=== PATIENT | female | born 1980 ===

== ENCOUNTER 2017-10-01 10:28 | Outpatient (CLI) ==
[2017-10-01 10:52] VITALS: BP 134/85; TEMP 98.7
[2017-10-01] MEDS ORDERED: BICILLIN L-A IM STA ×2 (11:00→11:10)
[2017-10-01] MEDS: BICILLIN L-A IM STA ×2 (11:07→11:11)
== END 2017-10-01 10:29 | disposition home or self-care (01) ==
LOC: OPMED 10:28
PROVIDERS: ATTEND Nurse Practitioner Family
DX: A53.9 Syphilis, unspecified (principal)
CPT/HCPCS: 96372

== ENCOUNTER 2017-10-01 13:31 | Outpatient (CLI) ==
[2017-10-01 13:49] LABS: BILIRUBIN,URINE Negative (NEGATIVE); KETONES,URINE Negative (NEGATIVE); LEUKOCYTE ESTERASE ,URINE Trace (NEGATIVE); NITRITE,URINE Negative (NEGATIVE); PROTEIN,URINE Negative (NEGATIVE); URINE, BLOOD Negative (NEGATIVE)
[2017-10-01 13:54] LABS: ADD URINE MICROSCOPIC YES; BACTERIA,URINE 2+ (NOT PRESENT)
[2017-10-01 13:57] LABS: ALBUMIN 3.5 g/dL (3.4-5.0); ALBUMIN/GLOBULIN RATIO 0.85; ANION GAP 10.9; BILIRUBIN,TOTAL 0.4 mg/dL (0.00-1.20); BUN/CREATININE RATIO 16.25; CALCIUM 9.3 mg/dL (8.2-10.2); CREATININE 0.8 mg/dL (0.60-1.30); POTASSIUM 3.9 mmol/L (3.5-5.10); TOTAL PROTEIN 7.6 g/dL (6.4-8.2)
== END 2017-10-01 13:32 | disposition home or self-care (01) ==
LOC: LAB 13:31
PROVIDERS: ATTEND Nurse Practitioner Family
DX: A53.9 Syphilis, unspecified (principal); Z20.2 Contact with and (suspected) exposure to infections with a predominantly sexual mode of transmission
CPT/HCPCS: 36415; 80053; 80074; 81001; 86592; 86631; 86695; 86696; 86701; 87086; 87800

== ENCOUNTER 2017-10-08 15:47 | Outpatient (CLI) | END 2017-10-08 15:48 | disposition home or self-care (01) | LOC: LAB 15:47 | PROVIDERS: ATTEND Nurse Practitioner Family | DX: A53.9 Syphilis, unspecified (principal); Z20.2 Contact with and (suspected) exposure to infections with a predominantly sexual mode of transmission | CPT/HCPCS: 36415; 86780 ==

== ENCOUNTER 2017-11-16 16:22 | Outpatient (CLI) | END 2017-11-16 16:23 | disposition home or self-care (01) | LOC: LAB 16:22 | PROVIDERS: ATTEND Family Medicine | DX: Z20.2 Contact with and (suspected) exposure to infections with a predominantly sexual mode of transmission (principal) | CPT/HCPCS: 87800 ==

== ENCOUNTER 2019-12-28 18:44 | Observation (INO) ==
[2019-12-28] MEDS ORDERED: ZOFRAN 4 MG/2 ML IVP STA (19:21)
[2019-12-28] MEDS ORDERED: SODIUM CHLORIDE 1,000 ML IV STA (19:21)
[2019-12-28] MEDS ORDERED: MORPHINE 4 MG/ML SYRINGE IVP STA (19:21)
[2019-12-28] MEDS ORDERED: LACTATED RINGERS 1,000 ML IV STA (19:21)
--- NOTE | 2019-12-28 19:21 | ED.PDOC ---
General ED Provider: Dr. BRANDAN ARELLANO Chief Complaint: Abdominal Pain Stated Complaint: Diffuse abdominal pain for 3 days. Pain has been constant since. States pressure to area helps. Time Seen by Physician: 19:16 Mode of Arrival: Walk-In Information Source: Patient Primary Care Provider: BRENDA LIND Nursing and Triage Documentation Reviewed and Agree: Yes Does patient meet sepsis criteria?: No System Inflammatory Response Syndrome: Not Applicable Sepsis Protocol: For patient's 13 years and over: Temp is 96.8 and below OR 101 and greater Pulse >90 BPM Resp >20/minute Acutely Altered Mental Status Are patient's symptoms suggestive of a new infection, such as: -Pneumonia -Skin, Soft Tissue -Endocarditis -UTI -Bone, Joint Infection -Implantable Device -Acute Abdominal Infection -Wound Infection -Meningitis -Blood Stream Catheter Infection -Unknown GI Complaint Exam Abdominal Pain Complaint/Exam Onset: Gradual Duration: 2 days Symptoms Are: Still present Timing: Constant Initial Severity: Moderate Current Severity: Moderate Location of Pain: Diffuse Radiates To: Denies Chest, Back, Flank, LLQ, RLQ and Inguinal Character: Reports Dull and Aching Aggravating: Reports Food Alleviating: Reports None Associated Signs and Symptoms: Reports Nausea, Vomiting and Diarrhea; Denies Diaphoresis, Fever, Cough, Chest pain, Dizziness, Back pain, Constipation, Blood in stool, Dysuria, Urinary frequency, Decreased urine output, Decreased appetite, Vaginal bleeding, Vaginal discharge, Sore throat and Decreased activity : 2 Para: 2 Hx Total # of Abortions (Spontaneous & Elective): 0 AAA Risk Factors: Reports None Ectopic Risk Factors: Reports None Ovarian Torsion Risk Factors: Reports None Surgical Obstruction Risk Factors: Reports Prior abdominal surgery Related Surgical History: Reports Appendectomy; Denies Cholecystectomy, Gastric Bypass, Kidney Stones, ALLAN and BSO Patient Rh Status: Unknown Abdominal Findings: Absent Rebound tenderness, Peritoneal signs, McBurney's Point tender, CVA Tenderness and Inguinal swelling Female Body Picture: 1. Diffuse abdominal pain without tenderness. Differential Diagnoses: Bowel Obstruction, Diverticulitis and Pancreatitis Review of Systems Review Of Systems Constitutional: Reports Loss of appetite Eyes: Reports No symptoms Ears, Nose, Mouth, Throat: Reports No symptoms Respiratory: Reports No symptoms Cardiac: Reports No symptoms GI: Reports Abdominal pain, Diarrhea (mild), Nausea and Vomiting (3 times today ) : Reports No symptoms Musculoskeletal: Reports No symptoms Skin: Reports No symptoms Neurological: Reports No symptoms Endocrine: Reports No symptoms Hematologic/Lymphatic: Reports No symptoms All Other Systems: Reviewed and Negative [facility] Medical History (Updated 12/28/19 @ 19:35 by BRANDAN ARELLANO MD) Bipolar 1 disorder Syphilis Family History Mother No problems noted. FATHER Cancer Hypertension Other Arthritis Female Reproductive History Menstrual Hx Hysterectomy: No Hx Tubal Ligation: No Physical Exam Physical Exam Appearance: Reports Ill-appearing and Obese Ill-appearing: Mild Pain Distress: Moderate Eyes: Reports DANNIE, EOMI and Conjunctiva clear ENT: Reports Ears normal, Nose normal and Oropharynx normal Respiratory: Reports Airway patent, Breath sounds clear, Breath sounds equal and Respirations nonlabored Cardiovascular: Reports RRR, Pulses normal, No rub and No murmur GI/: Reports Soft and Nontender Musculoskeletal: Reports Normal strength, ROM intact, No edema and No calf tenderness Skin: Reports Warm, Dry and Normal color Neurological: Reports Motor intact, Alert and Oriented Psychiatric: Reports Anxious Critical Care Note Critical Care Note Total Time (mins): 35 Course Course Orders, Labs, Meds: Orders Category Date Time Status ED IV/MEDIPORT/POWERPORT .ONCE EMERGENCY 12/28/19 19:21 Active AMYLASE Stat LAB 12/28/19 19:21 Ordered CBC W/ AUTO DIFF Stat LAB 12/28/19 19:21 Ordered COMPREHENSIVE METABOLIC PANEL Stat LAB 12/28/19 19:21 Ordered LIPASE Stat LAB 12/28/19 19:21 Ordered SERUM Stat LAB 12/28/19 Ordered URINALYSIS C & S IF INDICATED Stat LAB 12/28/19 19:21 Uncollected 0.9 % Sodium Chloride [Saline Flush] MEDS 12/28/19 19:21 Active 1 syr IVF PRN PRN Morphine Sulfate [Morphine 4 mg/ml Syringe] MEDS 12/28/19 19:21 Discontinued 4 mg IVP ONCE STA Ondansetron HCl/Pf [Zofran 4 mg/2 ml] MEDS 12/28/19 19:21 Discontinued 4 mg IVP ONCE STA Ringers Lactated Solution [Lactated Ringers] 1,000 ml MEDS 12/28/19 19:21 Active IV BOLUS Sodium Chloride 0.9% [Sodium Chloride] 1,000 ml MEDS 12/28/19 19:[address] ABD/PEL WO RENAL STONE PROT Stat RADS 12/28/19 19:21 Ordered Medications Generic Name Dose Route Start Last Admin Trade Name Freq PRN Reason Stop Dose Admin Lactated Ringer's 1,000 mls @ 1,000 mls/hr 12/28/19 19:21 Lactated Ringers IV 12/28/19 20:20 BOLUS STA Sodium Chloride 1,000 mls @ 1,000 mls/hr 12/28/19 19:21 Sodium Chloride IV 12/28/19 20:20 BOLUS STA Sodium Chloride 1 syr 12/28/19 19:21 Saline Flush IVF PRN PRN To flush IV Discontinued Medications Generic Name Dose Route Start Last Admin Trade Name Freq PRN Reason Stop Dose Admin Morphine Sulfate 4 mg 12/28/19 19:21 Morphine 4 Mg/Ml Syringe IVP 12/28/19 19:22 ONCE STA Ondansetron HCl 4 mg 12/28/19 19:21 Zofran 4 Mg/2 Ml IVP 12/28/19 19:22 ONCE STA Vital Signs: Temp Pulse Resp BP Pulse Ox 12/28/19 18:44 98.6 F 113 H 17 130/84 95 Discharge Plan Discharge Patient Disposition: HOME SELF-CARE Discharge Problem: Abdominal pain Instructions: Abdominal Pain (ED) Prescriptions: No Action cetirizine 10 MG tablet 10 mg PO DAILY 30 Days Qty: 30 RF: 0 No Reported Medications 0 Qty: 0 RF: 0 ED Provider: BRANDAN ARELLANO
[2019-12-28 19:46] LABS: HEMATOCRIT 41.3 % (37.0-47.0)
--- NOTE | 2019-12-28 20:42 | CT ---
EXAM: CT of the abdomen pelvis without contrast History: Diffuse abdominal pain with nausea and vomiting. Technique: Multiplanar CT images through the abdomen pelvis were obtained without the administration of IV contrast Findings: Lung bases are clear. No acute osseous abnormalities. No gallstones identified by CT. Possible gallbladder sludge. Adrenal glands are unremarkable. No r enal stones and no hydronephrosis. The appendix is not seen. There is acute inflammation involving the pancreatic tail. No peripancreatic fluid collections. Evaluation for a pancreatic mass is limit ed due to lack of contrast administration. No liver or splenic lesions. No bowel obstruction. No f ree air. No bladder wall thickening. No perirectal inflammation. Adnexal structures appear appropr iate for patient's age. No abdominal aortic aneurysm. Impression: 1. Acute pancreatitis. 2. Possible gallbladder sludge
[2019-12-28] MEDS ORDERED: DILAUDID 1 MG/ML SYRINGE IVP STA (21:42)
[2019-12-28] MEDS ORDERED: DILAUDID 1 MG/ML SYRINGE IVP PRN ×2 (22:43→23:30)
[2019-12-28] MEDS ORDERED: NORCO 5-325 PO PRN (22:43)
[2019-12-28] MEDS ORDERED: ZOFRAN 4 MG/2 ML IVP PRN (22:43)
[2019-12-28] MEDS ORDERED: MORPHINE 2 MG/ML SYRINGE IVP PRN (22:59)
[2019-12-28] MEDS ORDERED: SODIUM CHLORIDE 0.9%-KCL 20 MEQ 1,000 ML IV SCH (23:00)
[2019-12-28] MEDS ORDERED: TRANDATE IVP PRN (23:02)
[2019-12-28 23:46] VITALS: BMI 45.5
[2019-12-29] MEDS: TYLENOL PO PRN ×2 (02:23→07:53)
[2019-12-29 05:31] LABS: HEMATOCRIT 35.7 % (37.0-47.0)
[2019-12-29] MEDS: SODIUM CHLORIDE 1,000 ML IV SCH ×2 (07:55→09:46)
[2019-12-29] MEDS ORDERED: LOVENOX SUBCUT SCH (09:00)
--- NOTE | 2019-12-29 09:01 | PCM ---
Chief Complaint Chief Complaint: "pain all across my stomach for the past 3 days" History of Present Illness History of Present Illness: Ms Rebolledo is a 39 year old female with past medical history of bipolar disorder and PTSD diagnosed about 3 years ago n ot currently on any mediations, who presents to the emergency department last evening 12/28/19 with c/o abdominal pain starting 3 days ago. Pt started on IV fluids, given dilaudid for pain control and zofran for nausea in ED. CT abd wo in ED showed acute pancreatitis. Pt is admitted to hospitalist service, observation status, for further evaluation and care. Pt is interviewed and examined at the bedside in her room on the medical unit. Pt is walking and pushing her IV pole from bathroom as I enter the room. She has a steady gait and doesn't complain of dizziness currently. She tells me that the "uncomfortable feeling in her stomach" started about 3 days ago. It then began to hurt and she was dizzy, had nausea, had one loose stool, and had chills. She states she had only one loose stool. She had another stool since then that was "normal". She took tylenol after she had the chills. She checked her temperature about 30 minutes after the tylenol and it was "98. something" she can't remember but she thought it was high so she decided to come to the hospital. Since her admission overnight pt has complained of a headache and received tylenol at 0230hrs 12/28. She didn't ask for any other pain medication overnight and said she slept "ok". She is now complaining of nausea and vomits x 1 this morning around 0815hrs and also of having a headache. She is NPO p MN for ultrasound this morning. Pt tells me that she has a history of bipolar disorder and PTSD diagnosed about 3 years ago by psychiatry. She was receiving counseling with a therapist and she was prescribed medication but didn't like how she felt on the medication and also was concerned about the reported side effects so she stopped taking it. She did return to speak with the psychiatrist about the mediation and they wanted to "up the dose" so she decided not to go back. She said she took the medication for a few weeks. She said she was told that the medication would "help keep me from gaining weight" but she decided she didn't like the medication and so stopped it. Pt states she has gained about 100 pounds over the past 3 years. Pt states she was donating plasma while living in [place] and was told she might have syphillis. She was seen in a clinic and had a blood test and was told it was negative. She was never treated. She has since left the area and now lives in [place] with her children and her mother. Review of Systems Constitutional: Reports chills; Denies fever, weakness, sweats, fatigue, loss of appetite and other Eyes: Denies blurred vision, double-vision, discharge, itching, pain, redness, photophobia and other Nose: Denies bleeding, congestion, discharge and other Throat: Denies pain, swelling, voice change and other Mouth: Denies bleeding, pain, swelling and other Respiratory: Denies cough, shortness of air, wheeze, hemoptysis, pain with breathing and other Cardiovascular: Denies chest pain, left arm pain, diaphoresis, PND, orthopnea, edema, palpitations, syncope and other Gastrointestinal: Reports abdominal pain, nausea and vomiting; Denies diarrhea, melena, hematemesis, hematochezia, dysphagia, constipation and other Genitourinary: Reports frequency; Denies dysuria, hematuria, incontinence, flank pain, vaginal discharge, abnormal bleeding, pelvic pain and other Neurological: Reports headache and dizziness; Denies seizure, numbness, weakness, speech difficulty, problems with walking, tremor, fainting and other Musculoskeletal: Denies pain, swelling in joints and other Skin: Denies rash, pruritus, lacerations, wounds, bruising and other Immunology: Denies hives, itching, frequent infections, difficulty healing and other Hematology: Denies easy bruising, easy bleeding, swollen glands and other Endocrine: Reports weight changes; Denies cold intolerance, heat intolerance, excessive thirst, excessive hunger, polyuria and other Psychiatric: Reports depression and other (hx bipolar disorder and PTSD) Habits: Denies tobacco use, substance use, alcohol use and other Allergies Allergies Allergy/AdvReac Type Severity Reaction Status Date / Time povidone-iodine Allergy Intermediate Rash Verified 12/28/19 21:50 [From Betadine] soap [From Betadine] Allergy Intermediate Rash Verified 12/28/19 21:50 [facility] Medical History Bipolar 1 disorder PTSD (post-traumatic stress disorder) (Acute) Surgical History Status post appendectomy Family History (Updated 12/29/19 @ 08:37 by [employer] DERMATOLOGY NURSE) FATHER Cancer Hypertension Mother No problems noted. Other Arthritis Social History (Updated 12/29/19 @ 08:40 by [employer] DERMATOLOGY NURSE) Smoking and tobacco status: Never smoker Alcohol intake: never Lives independently: Yes Number of children: 2 Current occupational status: unemployed History of recent travel: No Medications Medications: Medications Generic Name Dose Route Start Last Admin Trade Name Freq PRN Reason Stop Dose Admin Acetaminophen 650 mg 12/28/19 23:00 12/29/19 07:53 Tylenol PO 650 mg Q6H PRN Administration Mild Pain Hydrocodone Bitart/Acetaminophen 1 tab 12/28/19 22:43 [place] 5-325 PO Q6H PRN Abdominal Pain moderate Enoxaparin Sodium 40 mg 12/29/19 09:00 Lovenox SUBCUT DAILY CARI Sodium Chloride 1,000 mls @ 100 mls/hr 12/28/19 23:00 12/29/19 07:55 Sodium Chloride IV 100 mls/hr .Q10H CARI Administration Labetalol HCl 10 mg 12/28/19 23:02 Trandate IVP Q6H PRN Hypertensive Emergency Morphine Sulfate 2 mg 12/28/19 22:59 Morphine 2 Mg/Ml Syringe IVP Q4H PRN Severe Pain Protocol Ondansetron HCl 4 mg 12/28/19 22:43 12/29/19 07:53 Zofran 4 Mg/2 Ml IVP 4 mg Q6H PRN Administration Nausea / Vomiting Sodium Chloride 1 syr 12/28/19 19:21 12/28/19 20:11 Saline Flush IVF 1 syr PRN PRN Administration To flush IV Body Composition Height: 5 ft 6 in Weight: 281 lb 15.539 oz Body Mass Index (BMI): 45.5 Vital Signs Temperature: 97.9 F Pulse Rate: 85 Respiratory Rate: 16 Blood Pressure: 107/67 O2 Sat by Pulse Oximetry: 95 Physical Examination Appearance: Reports Well-appearing and Obese Pain Distress: Mild Eyes: Reports DANNIE and EOMI ENT: Reports Oropharynx normal Neck: Supple Respiratory: Reports Airway patent, Breath sounds clear, Breath sounds equal and Respirations nonlabored Cardiovascular: Reports RRR and Pulses normal GI/: Reports Soft, Nontender (diffuse mild tenderness to palpation), Bowel sounds normal and No Organomegaly (difficult to assess to due to girth) Musculoskeletal: Reports ROM intact and No edema Skin: Reports Warm and Dry Neurological: Reports Sensation intact, Motor intact, Alert and Oriented Psychiatric: Reports Affect appropriate (rather flat affect; doesn't appear to be anxious) Lab/Tests/Diagnostic Imaging Lab/Tests/Diagnostic Imaging: CT Abdomen wo 12/28/19 Findings: Lung bases are clear. No acute osseous abnormalities. No gallstones identified by CT. Possible gallbladder sludge. Adrenal glands are unremarkable. No renal stones and no hydronephrosis. The appendix is not seen. There is acute inflammation involving the pancreatic tail. No peripancreatic fluid collections. Evaluation for a pancreatic mass is limited due to lack of contrast administration. No liver or splenic lesions. No bowel obstruction. No free air. No bladder wall thickening. No perirectal inflammation. Adnexal structures appear appropriate for patient's age. No abdominal aortic aneurysm. Impression: 1. Acute pancreatitis. 2. Possible gallbladder sludge Lab Review 12/28/19 12/28/19 12/28/19 19:40 19:40 19:40 WBC 9.63 RBC 4.99 Hgb 13.4 Hct 41.3 MCV 82.8 MCH 26.9 L MCHC 32.4 RDW Coeff of [place] 13.9 Plt Count 277 Immature Gran % (Auto) 0.2 Neut % (Auto) 79.5 H Lymph % (Auto) 14.0 Forrest % (Auto) 5.0 Eos % (Auto) 1.1 Baso % (Auto) 0.2 Immature Gran # (Auto) 0.0 Neut # (Auto) 7.7 H Lymph # (Auto) 1.4 Forrest # (Auto) 0.5 Eos # (Auto) 0.1 Baso # (Auto) 0.0 Sodium 136.1 Potassium 3.81 Chloride 100.0 Carbon Dioxide 26.9 Anion Gap 13.01 BUN 9.7 Creatinine 0.58 L Estimated GFR (MDRD) 116.00 BUN/Creatinine Ratio 16.72 Glucose 93.3 Hemoglobin A1c Calcium 8.56 Total Bilirubin 0.55 AST 26.3 ALT 15.8 Alkaline Phosphatase 101.2 Total Protein 7.55 Albumin 4.11 Globulin 3.44 Albumin/Globulin Ratio 1.19 Triglycerides Cholesterol LDL Cholesterol, Calc VLDL Cholesterol HDL Cholesterol Cholesterol/HDL Ratio Amylase 78.3 Lipase 164.2 Serum , Qual Negative Urine Color Urine Clarity Urine pH Ur Specific [place] Urine Protein Urine Glucose (UA) Urine Ketones Urine Blood Urine Nitrite Urine Bilirubin Urine Urobilinogen Ur Leukocyte Esterase Urine Microscopic WBC Ur Squamous Epith Cells Ur Transition Epith Cell Urine Bacteria Urine Mucus 12/28/19 12/29/19 12/29/19 21:00 05:04 05:04 WBC 7.95 RBC 4.38 Hgb 11.6 L Hct 35.7 L MCV 81.5 MCH 26.5 L MCHC 32.5 RDW Coeff of [place] 14.0 Plt Count 254 Immature Gran % (Auto) 0.3 Neut % (Auto) 73.9 Lymph % (Auto) 17.6 Forrest % (Auto) 6.5 Eos % (Auto) 1.4 Baso % (Auto) 0.3 Immature Gran # (Auto) 0.0 Neut # (Auto) 5.9 Lymph # (Auto) 1.4 Forrest # (Auto) 0.5 Eos # (Auto) 0.1 Baso # (Auto) 0.0 Sodium 136.4 Potassium 3.99 Chloride 102.9 Carbon Dioxide 26.2 Anion Gap 11.29 BUN 7.7 Creatinine 0.61 Estimated GFR (MDRD) 110.00 BUN/Creatinine Ratio 12.62 Glucose 103.9 Hemoglobin A1c Calcium 8.52 Total Bilirubin AST ALT Alkaline Phosphatase Total Protein Albumin Globulin Albumin/Globulin Ratio Triglycerides 79.7 Cholesterol 142.0 LDL Cholesterol, Calc 85 VLDL Cholesterol 16 HDL Cholesterol 41.0 Cholesterol/HDL Ratio 3.5 L Amylase 68.6 Lipase 152.2 Serum , Qual Urine Color Yellow Urine Clarity Slightly Urine pH 6.0 Ur Specific [place] 1.025 Urine Protein Negative Urine Glucose (UA) Negative Urine Ketones Trace H Urine Blood Negative Urine Nitrite Negative Urine Bilirubin Negative Urine Urobilinogen 1.0 H Ur Leukocyte Esterase 1+ H Urine Microscopic WBC 50-100 Ur Squamous Epith Cells 10-20 Ur Transition Epith Cell 2-5 Urine Bacteria 3+ Urine Mucus 1+ 12/29/19 05:04 WBC RBC Hgb Hct MCV MCH MCHC RDW Coeff of [place] Plt Count Immature Gran % (Auto) Neut % (Auto) Lymph % (Auto) Forrest % (Auto) Eos % (Auto) Baso % (Auto) Immature Gran # (Auto) Neut # (Auto) Lymph # (Auto) Forrest # (Auto) Eos # (Auto) Baso # (Auto) Sodium Potassium Chloride Carbon Dioxide Anion Gap BUN Creatinine Estimated GFR (MDRD) BUN/Creatinine Ratio Glucose Hemoglobin A1c 5.38 Calcium Total Bilirubin AST ALT Alkaline Phosphatase Total Protein Albumin Globulin Albumin/Globulin Ratio Triglycerides Cholesterol LDL Cholesterol, Calc VLDL Cholesterol HDL Cholesterol Cholesterol/HDL Ratio Amylase Lipase Serum , Qual Urine Color Urine Clarity Urine pH Ur Specific [place] Urine Protein Urine Glucose (UA) Urine Ketones Urine Blood Urine Nitrite Urine Bilirubin Urine Urobilinogen Ur Leukocyte Esterase Urine Microscopic WBC Ur Squamous Epith Cells Ur Transition Epith Cell Urine Bacteria Urine Mucus Orders Category Date Time Status ADMIT OBSERVATION [PLACE PATIENT OBSERVATION] .TO ADMISSION 12/28/19 23:11 Active MEDSURG (NON-MONITORED BED) ACTIVITY .Up ad Kaylee CARE 12/28/19 22:46 Active INTAKE & OUTPUT Q8HR CARE 12/28/19 22:45 Active NPO REMINDER: IMAGING ONCE CARE 12/28/19 22:48 Completed NPO REMINDER: LAB TEST ONCE CARE 12/29/19 00:08 Active VITAL SIGNS Q4HR CARE 12/28/19 22:45 Active NPO [NOTHING BY MOUTH] DIETARY 12/29/19 Breakfast Ordered REGULAR DIET DIETARY 12/28/19 Lunch Ordered ED IV/MEDIPORT/POWERPORT .ONCE EMERGENCY 12/28/19 19:21 Active AMYLASE Routine LAB 12/29/19 05:04 Completed AMYLASE Stat LAB 12/28/19 19:40 Completed BASIC METABOLIC PANEL DAILY@0600 LAB 12/29/19 05:04 Completed CBC W/ AUTO DIFF DAILY@0600 LAB 12/29/19 05:04 Completed CBC W/ AUTO DIFF Stat LAB 12/28/19 19:40 Completed COMPREHENSIVE METABOLIC PANEL Stat LAB 12/28/19 19:40 Completed HEMOGLOBIN A1C Routine LAB 12/29/19 05:04 Completed LIPASE Routine LAB 12/29/19 05:04 Completed LIPASE Stat LAB 12/28/19 19:40 Completed LIPID PANEL Routine LAB 12/29/19 05:04 Completed SERUM Stat LAB 12/28/19 19:40 Completed URINALYSIS C & S IF INDICATED Stat LAB 12/28/19 21:00 Completed URINE CULTURE Stat LAB 12/28/19 21:00 Results 0.9 % Sodium Chloride [Saline Flush] MEDS 12/28/19 19:21 Active 1 syr IVF PRN PRN Acetaminophen [Tylenol] MEDS 12/28/19 23:00 Active 650 mg PO Q6H PRN Enoxaparin Sodium [Lovenox] MEDS 12/29/19 09:00 Active 40 mg SUBCUT DAILY Hydrocodone Bit/Acetaminophen [[place] 5-325] MEDS 12/28/19 22:43 Active 1 tab PO Q6H PRN Hydromorphone HCl [Dilaudid 1 mg/ml Syringe] MEDS 12/28/19 21:42 Discontinued 1 mg IVP ONCE STA Hydromorphone HCl [Dilaudid 1 mg/ml Syringe] MEDS 12/28/19 22:43 Discontinued 1 mg IVP Q4HR PRN Labetalol HCl [Trandate] MEDS 12/28/19 23:02 Active 10 mg IVP Q6H PRN Morphine Sulfate [Morphine 2 mg/ml Syringe] MEDS 12/28/19 22:59 Active 2 mg IVP Q4H PRN Morphine Sulfate [Morphine 4 mg/ml Syringe] MEDS 12/28/19 19:21 Discontinued 4 mg IVP ONCE STA Ondansetron HCl/Pf [Zofran 4 mg/2 ml] MEDS 12/28/19 19:21 Discontinued 4 mg IVP ONCE STA Ondansetron HCl/Pf [Zofran 4 mg/2 ml] MEDS 12/28/19 22:43 Active 4 mg IVP Q6H PRN Ringers Lactated Solution [Lactated Ringers] 1,000 ml MEDS 12/28/19 19:21 Discontinued IV BOLUS Sodium Chloride 0.9% [Sodium Chloride] 1,000 ml MEDS 12/28/19 23:00 Active IV 100 mls/hr Sodium Chloride 0.9% [Sodium Chloride] 1,000 ml MEDS 12/28/19 19:21 Discontinued IV BOLUS RESUSCITATION STATUS Routine OTHERS 12/28/19 22:[address] ABD/PEL WO RENAL STONE PROT Stat RADS 12/28/19 19:21 Completed U/S ABDOMEN, RT. UPPER QUAD Stat RADS 12/29/19 07:00 Ordered Medications Generic Name Dose Route Start Last Admin Trade Name Freq PRN Reason Stop Dose Admin Acetaminophen 650 mg 12/28/19 23:00 03/26/20 07:53 Tylenol PO 650 mg Q6H PRN Administration Mild Pain Hydrocodone Bitart/Acetaminophen 1 tab 12/28/19 22:43 [place] 5-325 PO Q6H PRN Abdominal Pain moderate Enoxaparin Sodium 40 mg 12/29/19 09:00 Lovenox SUBCUT DAILY CARI Sodium Chloride 1,000 mls @ 100 mls/hr 12/28/19 23:00 12/29/19 07:55 Sodium Chloride IV 100 mls/hr .Q10H CARI Administration Labetalol HCl 10 mg 12/28/19 23:02 Trandate IVP Q6H PRN Hypertensive Emergency Morphine Sulfate 2 mg 12/28/19 22:59 Morphine 2 Mg/Ml Syringe IVP Q4H PRN Severe Pain Protocol Ondansetron HCl 4 mg 12/28/19 22:43 12/29/19 07:53 Zofran 4 Mg/2 Ml IVP 4 mg Q6H PRN Administration Nausea / Vomiting Sodium Chloride 1 syr 12/28/19 19:21 12/28/19 20:11 Saline Flush IVF 1 syr PRN PRN Administration To flush IV Discontinued Medications Generic Name Dose Route Start Last Admin Trade Name Freq PRN Reason Stop Dose Admin Hydromorphone HCl 1 mg 12/28/19 21:42 12/28/19 21:51 Dilaudid 1 Mg/Ml Syringe IVP 12/28/19 21:43 1 mg ONCE STA Administration Hydromorphone HCl 1 mg 12/28/19 22:43 Dilaudid 1 Mg/Ml Syringe IVP Q4HR PRN Severe Pain Lactated Ringer's 1,000 mls @ 1,000 mls/hr 12/28/19 19:21 12/28/19 20:10 Lactated Ringers IV 12/28/19 20:20 1,000 mls/hr BOLUS STA Administration Sodium Chloride 1,000 mls @ 1,000 mls/hr 12/28/19 19:21 12/28/19 20:11 Sodium Chloride IV 12/28/19 20:20 1,000 mls/hr BOLUS STA Administration Morphine Sulfate 4 mg 12/28/19 19:21 12/28/19 20:11 Morphine 4 Mg/Ml Syringe IVP 12/28/19 19:22 4 mg ONCE STA Administration Ondansetron HCl 4 mg 12/28/19 19:21 12/28/19 20:11 Zofran 4 Mg/2 Ml IVP 12/28/19 19:22 4 mg ONCE STA Administration Assessment (1) Pancreatitis, acute: Status: Acute Code(s): K85.9 - Acute pancreatitis, unspecified SNOMED Code(s): 002389931 Qualifiers: Acute pancreatitis complication: unspecified Pancreatitis type: idiopathic Qualified Code(s): K85.00 - Idiopathic acute pancreatitis without necrosis or infection (2) Bacteria in urine: Status: Acute Code(s): N39.0 - Urinary tract infection, site not specified SNOMED Code(s): 47159908 (3) Class 3 severe obesity with body mass index (BMI) of 45.0 to 49.9 in adult: Status: Acute Code(s): E66.01 - Morbid (severe) obesity due to excess calories; Z68.42 - Body mass index (BMI) 45.0-49.9, adult SNOMED Code(s): 93208151113458 Plan Plan: acute pancreatitis, unclear etiology -abdominal pain improved but not resolved; still with nausea and 1 episode of vomiting this am -pt had no request for pain medication for her abdomen overnight -continue IV fluids, pain control, antiemetics; dilaudid discontinued -pancreatitis per CT abdomen; gallbladder sludge noted; abdominal US pending -pt states she does not drink alcohol, no herbs, no OTC meds -lipase on admission 164, 152 after IV fluids both wnl, sxs started 3 days ago and lipase may have been elevated earlier in disease process -lipids TChol 142 trig 79.7 LDL 85 HDL 41 all within normal limits, no hypertriglyceridemia as etiology bacteria in urine, no pyuria - neg nitrites, 1+ leukocytes, +wbc, 3+ bacteria -pt denies dysuria; no hx per pt of recurrent UTIs; no pyuria noted -urine culture pending; no abx for now obesity, severe BMI>45, due to excess calories -hemoglobin A1c 5.38 -discussed/counseled pt on reducing intake of carbohydrates and portion size; increasing aerobic exercise such as walking daily hx Bipolar disorder/PTSD -not currently on mediations; pt doesn't appear to be manic; flat affect noted; stable concern for possible latent syphilis -told she might have infection after giving plasma 3 years ago; repeat blood test negative; never treated -pt might benefit from repeat testing and/or treatment for latent syphillis >1yr or unknown time frame -pt will discuss with her PCP at follow up DVT PPx: lovenox GI PPx: protonix CODE: full
--- NOTE | 2019-12-29 09:11 | US ---
EXAM: Ultrasound abdomen limited right upper quadrant HISTORY: Pancreatitis COMPARISON: None TECHNIQUE: Limited ultrasound abdomen right upper quadrant was performed FINDINGS: Examination is limited due to areas of shadowing artifact. Pancreas obscured secondary to bowel gas shadowing. Liver normal in size and probably mildly increased in echogenicity. Portions of the liver obscured secondary to bowel gas shadowing. Main portal vein patent with normal directio n of flow. Gallbladder sludge versus artifact. No shadowing gallstones. No gallbladder wall thicke zohra. No pericholecystic fluid. No biliary duct dilation with common bile duct measuring 0.6 cm. IMPRESSION: 1. Gallbladder sludge versus artifact. No shadowing gallstones. No gallbladder wall thickening. 2. Probable hepatic steatosis. 3. Pancreas is obscured. 4. Limited examination
[2019-12-29 10:30] VITALS: BP 95/57; TEMP 97.8
[2019-12-29] MEDS ORDERED: PROTONIX PO SCH (10:30)
--- NOTE | 2019-12-29 14:28 | PCM.DC ---
Final Diagnosis: primary: acute pancreatitis, unclear etiology bacturia w/o pyuria severe obesity BMI >45 secondary: hx bipolar disorder; PTSD (1) Pancreatitis, acute: Status: Acute Code(s): K85.9 - Acute pancreatitis, unspecified SNOMED Code(s): 030890258 Qualifiers: Acute pancreatitis complication: unspecified Pancreatitis type: idiopathic Qualified Code(s): K85.00 - Idiopathic acute pancreatitis without necrosis or infection (2) Bacteria in urine: Status: Acute Code(s): N39.0 - Urinary tract infection, site not specified SNOMED Code(s): 92685616 (3) Class 3 severe obesity with body mass index (BMI) of 45.0 to 49.9 in adult: Status: Acute Code(s): E66.01 - Morbid (severe) obesity due to excess calories; Z68.42 - Body mass index (BMI) 45.0-49.9, adult SNOMED Code(s): 50603767185722 Reason for Hospitalization: abdominal pain x 3 days with associated dizziness, nausea with vomiting CT abd with acute pancreatitis with gallbladder sludge Prognosis at Discharge: good Condition at Discharge: abdominal pain and nausea improved not resolved hemodynamically stable; deemed safe for discharge Medications at Discharge: Ambulatory Orders Medication Instructions Recorded 1 [No Reported Medications] 12/28/19 hydrocodone-acetaminophen 1 tab PO Q6H PRN #10 tab 12/29/19 pt given handwritten rx for norco 5/325mg po q6hrs prn abd pain; zofran ODT sublingual q4hrs prn N/V Lab/Diagnostics: EXAM: CT of the abdomen pelvis without contrast 12/28/2019 History: Diffuse abdominal pain with nausea and vomiting. Technique: Multiplanar CT images through the abdomen pelvis were obtained without the administration of IV contrast Findings: Lung bases are clear. No acute osseous abnormalities. No gallstones identified by CT. Possible gallbladder sludge. Adrenal glands are unremarkable. No renal stones and no hydronephrosis. The appendix is not seen. There is acute inflammation involving the pancreatic tail. No peripancreatic fluid collections. Evaluation for a pancreatic mass is limited due to lack of contrast administration. No liver or splenic lesions. No bowel obstruction. No free air. No bladder wall thickening. No perirectal inflammation. Adnexal structures appear appropriate for patient's age. No abdominal aortic aneurysm. Impression: 1. Acute pancreatitis. 2. Possible gallbladder sludge EXAM: Ultrasound abdomen limited right upper quadrant 12/29/2019 HISTORY: Pancreatitis COMPARISON: None TECHNIQUE: Limited ultrasound abdomen right upper quadrant was performed FINDINGS: Examination is limited due to areas of shadowing artifact. Pancreas obscured secondary to bowel gas shadowing. Liver normal in size and probably mildly increased in echogenicity. Portions of the liver obscured secondary to bowel gas shadowing. Main portal vein patent with normal direction of flow. Gallbladder sludge versus artifact. No shadowing gallstones. No gallbladder wall thickening. No pericholecystic fluid. No biliary duct dilation with common bile duct measuring 0.6 cm. IMPRESSION: 1. Gallbladder sludge versus artifact. No shadowing gallstones. No gallbladder wall thickening. 2. Probable hepatic steatosis. 3. Pancreas is obscured. 4. Limited examination Education Provided to Patient and Family: bland diet; watch portion sizes; reduce carbs; take medications as prescribed Follow-ups: PCP next week after MRCP; MRCP as scheduled follow instructions for test Discharge Disposition: Home Hospital Course: Ms. Rebolledo was admitted with complaint of abdominal pain x 3 days with associated dizziness, nausea, vomiting, one loose stool and chills. CT abd wo positive for acute pancreatitis and gallbladder sludge without gallstones noted. Pt denies any prior history of abdominal pain like this of diagnosis of pancreatitis. Pt admitted for further care. Please see full H&P for details. Pt received opioid pain medication in emergency and didn't require/request any further pain medication for her abdominal pain for the rest of her stay. She said her abdominal pain was mostly relieved but not totally resolved. She did however c/o headache and received tylenol 65omg x 2 with relief. She received zofran for c/o NV with improvement. Pt was able to eat moderate amount of solid foods without return/worsening of abdominal pain and/or nausea/vomiting. Pt remained afebrile, reported no chills, and had no elevation to her wbc. Pt also had abdominal ultrasound which was also positive for possible gallbladder sludge. Pts lipase was within normal limits on admission and on repeat. Pts sxs however have been present for about 3 days prior to presentation. Unclear if values would have been higher if assessed earlier. Pts lipid panel also within normal limits. Pt denies drinking alcohol or taking OTC medications/herbal products. Pts total bilirubin within normal limits. Her calcium is moderately low and it is unknown if she has had a low calcium over an extended period which might infer parathyroid disease. Corrected calcium low at 8.43. PTH ordered and is pending. Vitamin D low at 24.8. She was not started on replacement therapy. Pt noted to have bacturia without pyuria or dysuria. Urine culture is pending. No antibiotics are given. Pts source for acute pancreatitis is unclear. she might benefit from MRCP to further investigate possible choledocholithiasis as a source. MRCP is scheduled for Monday 01/01; PTH is pending; UCx pending. Pt released with written rx for zofran ODT and norco 5/325mg po prn. She will f/u with PCP Dr Gu after MRCP is performed. Pt with severe obesity related to excess calories. Discussed/counseled on reducing carb intake, reducing portions size, aerobic exercise such as walking daily. Hemoglobin A1c 5.38. Pt will discuss further with PCP. Pt with hx bipolar disease and PTSD currently not on medications. Advised to seek help via her PCP if she feels need to see psychiatry again or engage in therapy again. discharge time: greater than 30 mins; education, discussing imaging and lab results; documentation
== END 2019-12-29 15:11 | disposition home or self-care (01) ==
LOC: MEDSURG B 18:44 → ED 18:44 → MEDSURG B 23:14
PROVIDERS: ADMIT Nurse Practitioner Family; ATTEND Nurse Practitioner Family
DX: E55.9 Vitamin D deficiency, unspecified; E66.01 Morbid (severe) obesity due to excess calories; R42 Dizziness and giddiness; R11.2 Nausea with vomiting, unspecified; R51 Headache; Z68.42 Body mass index [BMI] 45.0-49.9, adult; F31.9 Bipolar disorder, unspecified; K82.9 Disease of gallbladder, unspecified; K85.00 Idiopathic acute pancreatitis without necrosis or infection; N39.0 Urinary tract infection, site not specified; F43.10 Post-traumatic stress disorder, unspecified; E83.51 Hypocalcemia